=== PATIENT | male | born 1980 | race Caucasian/White ===

== ENCOUNTER 2018-08-12 10:29 | Emergency (ER) ==
[2018-08-12 10:37] VITALS: BP 134/82; TEMP 97.2; BMI 21.7
[2018-08-12] MEDS ORDERED: LACTATED RINGERS 1,000 ML IV STA (10:48)
[2018-08-12] MEDS ORDERED: ZOFRAN 4 MG/2 ML IVP STA ×2 (10:48→12:16)
--- NOTE | 2018-08-12 11:17 | CT ---
EXAM: CT of the head without contrast History: Headache, history of brain cancer, altered mental status. Comparison: None available Technique: Multiplanar CT images through the head were obtained without the administration of IV con trast. Findings: The visualized paranasal sinuses and mastoid air cells are clear in general. Postsurgical changes of the left frontal calvarium. Intracranially there is a large area of edema within the left frontal lobe crossing the midline and t o the right frontal lobe and extending to involve the left temporal lobe and left basal ganglia. The re is 0.6 cm rightward midline shift and subfalcine herniation. There is mild hydrocephalus. There is a surgical cavity seen within the left frontal lobe. 0.4 cm hyperdense focus within the anterior left frontal lobe. Impression: 1. Large area of edema within the left frontal lobe crossing the midline into the right frontal lobe and also extending to involve the left temporal lobe and left basal ganglial region concerning for un derlying malignant brain tumor recurrence. Underlying developing brain infarction should also be cons idered. 2. 0.6 cm rightward midline shift and mild hydrocephalus. 3. 0.4 cm hyperdense focus within the anterior left upper lobe could represent a small focus of hemo rrhage versus hemorrhagic metastatic lesion. Critical results communicated to Dr. Hamlin at 11:04 a.m. 08/12/2018
[2018-08-12] MEDS ORDERED: DECADRON 4 MG/ML SDV IVP STA (11:52)
--- NOTE | 2018-08-12 11:52 | ED.PDOC ---
General ED Provider: Dr. OKSANA CHIANG Chief Complaint: Altered Mental Status Stated Complaint: Patient has a history of Neuroblastoma Multiformi for the past 3 years. Has had two brain surgery and chemotherapy. Recently he was noted to have worsening on the MRI done on the 03 August. Today he had 3 vomiting episodes with severe headache and had some difficulty walking. He also has some gabbled speech but now back to baseline. Accompanied by . Time Seen by Physician: 11:55 Mode of Arrival: Walk-In Information Source: Family Exam Limitations: No limitations Nursing and Triage Documentation Reviewed and Agree: Yes Does patient meet sepsis criteria?: No System Inflammatory Response Syndrome: Not Applicable Sepsis Protocol: For patient's 13 years and over: Temp is 96.8 and below OR 101 and greater Pulse >90 BPM Resp >20/minute Acutely Altered Mental Status Are patient's symptoms suggestive of a new infection, such as: -Pneumonia -Skin, Soft Tissue -Endocarditis -UTI -Bone, Joint Infection -Implantable Device -Acute Abdominal Infection -Wound Infection -Meningitis -Blood Stream Catheter Infection -Unknown Review of Systems - Review Of Systems Constitutional: Reports: No symptoms Eyes: Reports: No symptoms Ears, Nose, Mouth, Throat: Reports: No symptoms Respiratory: Reports: No symptoms Cardiac: Reports: No symptoms GI: Reports: No symptoms : Reports: No symptoms Musculoskeletal: Reports: No symptoms Skin: Reports: No symptoms Neurological: Reports: Anxiety, Headache Endocrine: Reports: No symptoms Hematologic/Lymphatic: Reports: No symptoms All Other Systems: Reviewed and Negative Past Medical History - Past Medical History Previously Healthy: Yes Endocrine: Reports: None Cardiovascular: Reports: None Respiratory: Reports: None Hematological: Reports: None Gastrointestinal: Reports: None Genitourinary: Reports: None Neuro/Psych: Reports: None Musculoskeletal: Reports: None Cancer: Reports: Other (Brain ) - Surgical History General Surgical History: Reports: Other (cervical fusion, Craniotomy x 2 ) - Family History Family History: Reports: None - Social History Smoking Status: Never smoker Hx Substance Use: No Alcohol Screening: Occasionally Physical Exam - Physical Exam Appearance: Ill-appearing, Thin Ill-appearing: Moderate Pain Distress: Moderate Eyes: KERRY, EOMI, Conjunctiva clear ENT: Nose normal, Oropharynx normal Neck: Supple Respiratory: Airway patent, Breath sounds clear, Breath sounds equal, Respirations nonlabored Cardiovascular: RRR, Pulses normal, No rub, No murmur GI/: Soft, Nontender, No masses, Bowel sounds normal, No Organomegaly Musculoskeletal: Normal strength, ROM intact, No edema, No calf tenderness Skin: Warm, Dry, Normal color Neurological: Sensation intact, Motor intact, Reflexes intact, Cranial nerves intact, Alert, Oriented Psychiatric: Affect appropriate, Mood appropriate - NIH Stroke Scale 1a. Level of Consciousness: 0=Alert and keenly responsive 1b. Level of Consciousness Questions: 0=Answers correctly to two questions 1c. Level of Consciousness Commands: 0=Performs two tasks correctly 2. Best Gaze: 0=Normal 3. Visual: 0=No visual loss 4. Facial Palsy: 0=Normal 5a. Motor Left Arm: 0=No drift,arm holds 90 degrees for 10 sec., leg 30 degrees for 5 sec. 5b. Motor Right Arm: 0=No drift,arm holds 90 degrees for 10 sec., leg 30 degrees for 5 sec. 6a. Motor Left Le=No drift,arm holds 90 degrees for 10 sec., leg 30 degrees for 5 sec. 6b. Motor Right Le=No drift,arm holds 90 degrees for 10 sec., leg 30 degrees for 5 sec. 7. Limb Ataxia: 0=Absent 8. Sensory: 0=Normal 9. Best Language: 0=No aphasia 10. Dysarthria: 0=Normal 11. Extincion and Inattention: 0=Normal Stroke Scale Total: 0 Interpretation - Radiology Interpretation Radiology Interpretation By: Radiologist Radiology Results: Positive (see report- brain tumor with edema probably worse) Exam Interpreted: CT Scan Physician Notification - Case Discussed Physician Notified: Dr. Bullock Time of Notification: 11:54 (Give Keppra 1 gm, and Dexamethasone 10mg IV x1. WIll discusse with Dr lenz where he should be reffered. Dr Bullock called to state that Dr Adhikari would like him to go to the nearest [facility]) Physician Notified: Dr RICKS Time of Notification: 13:27 (Accepted by to [facility] to go through the ER. Neurosurgeon is DR Sadler) Critical Care Note - Critical Care Note Total Time (mins): 55 Course - Course Hematology/Chemistry: 08/12/18 11:05 08/12/18 11:05 Orders, Labs, Meds: Lab Review 08/12/18 08/12/18 11:05 11:05 WBC 10.76 H RBC 4.87 Hgb 14.8 Hct 43.2 MCV 88.7 MCH 30.4 MCHC 34.3 RDW Coeff of Giancarlo 12.5 Plt Count 156 Immature Gran % (Auto) 0.8 Neut % (Auto) 84.5 Lymph % (Auto) 7.6 L Clayton % (Auto) 6.7 Eos % (Auto) 0.1 Baso % (Auto) 0.3 Immature Gran # (Auto) 0.1 Neut # (Auto) 9.1 H Lymph # (Auto) 0.8 Clayton # (Auto) 0.7 Eos # (Auto) 0.0 Baso # (Auto) 0.0 Sodium 137.9 Potassium 3.66 Chloride 102.4 Carbon Dioxide 32.8 H Anion Gap 6.36 BUN 26.5 H Creatinine 0.90 Estimated GFR (MDRD) 93.00 BUN/Creatinine Ratio 29.44 Glucose 132.5 H Calcium 9.26 Total Bilirubin 0.86 AST 23.3 ALT 17.2 Alkaline Phosphatase 54.2 Total Protein 7.05 Albumin 4.13 Globulin 2.92 Albumin/Globulin Ratio 1.41 Orders Category Date Time Status ED IV/MEDIPORT/POWERPORT .ONCE EMERGENCY 08/12/18 10:48 Active CBC W/ AUTO DIFF Stat LAB 08/12/18 11:05 Completed COMPREHENSIVE METABOLIC PANEL Stat LAB 08/12/18 11:05 Completed 0.9 % Sodium Chloride [Saline Flush] MEDS 08/12/18 10:48 Discontinued 1 syr IVF PRN PRN Dexamethasone 4 mg/ml Inj [Decadron 4 mg/ml Sdv] MEDS 08/12/18 11:52 Discontinued 10 mg IVP ONCE STA Levetiracetam Inj [Keppra] 1,000 mg MEDS 08/12/18 11:53 Discontinued 0.9 % Sodium Chloride [Sodium Chloride] 100 ml IV ONCE Ondansetron HCl/Pf [Zofran 4 mg/2 ml] MEDS 08/12/18 10:48 Discontinued 4 mg IVP ONCE STA Ondansetron HCl/Pf [Zofran 4 mg/2 ml] MEDS 08/12/18 12:16 Discontinued 4 mg IVP ONCE STA Ringers Lactated Solution [Lactated Ringers] 1,000 ml MEDS 08/12/18 10:[address] HEAD W/O CONTRAST Stat RADS 08/12/18 10:47 Completed Medications Discontinued Medications Generic Name Dose Route Start Last Admin Trade Name Peter PRN Reason Stop Dose Admin Dexamethasone Sodium Phosphate 10 mg 08/12/18 11:52 08/12/18 12:13 Decadron 4 Mg/Ml Sdv IVP 08/12/18 11:53 10 mg ONCE STA Administration Lactated Ringer's 1,000 mls @ 1,000 mls/hr 08/12/18 10:48 08/12/18 11:15 Lactated Ringers IV 08/12/18 11:47 1,000 mls/hr BOLUS STA Administration Levetiracetam 1,000 mg/ Sodium 110 mls @ 100 mls/hr 08/12/18 11:53 08/12/18 12:22 Chloride IV 08/12/18 12:58 100 mls/hr ONCE STA Administration Ondansetron HCl 4 mg 08/12/18 10:48 08/12/18 11:17 Zofran 4 Mg/2 Ml IVP 08/12/18 10:49 4 mg ONCE STA Administration Ondansetron HCl 4 mg 08/12/18 12:16 08/12/18 12:21 Zofran 4 Mg/2 Ml IVP 08/12/18 12:17 4 mg ONCE STA Administration Sodium Chloride 1 syr 08/12/18 10:48 08/12/18 12:19 Saline Flush IVF 1 syr PRN PRN Administration To flush IV Vital Signs: Temp Pulse Resp BP Pulse Ox 08/12/18 10:32 97.2 F L 63 16 134/82 97 Departure - Departure Time of Disposition: 13:28 Disposition: TSF SHORT-TRM HOSP Discharge Problem: Brain tumor, Midline shift of brain Condition: Fair Pt referred to PMD for follow-up: No IPMP verified?: No Allergies/Adverse Reactions: Allergies No Known Allergies Allergy (Unverified 08/12/18 10:38) Home Medications: Ambulatory Orders Acetaminophen [Tylenol] 32,650 mg PO PRN PRN 08/12/18 Dexamethasone 1 mg PO DIRECTED 08/12/18 Hydrocodone Bit/Acetaminophen [Lortab 5-500] 1 tab PO PRN PRN 08/12/18 Lorazepam 0.5 mg PO PRN PRN 08/12/18 Disposition Discussed With: Patient, Family
[2018-08-12] MEDS ORDERED: KEPPRA 1,000 MG in SODIUM CHLORIDE 100 ML IV STA (11:53)
== END 2018-08-12 13:50 | disposition short-term general hospital (02) ==
LOC: ED 10:29
DX: C71.9 Malignant neoplasm of brain, unspecified (principal); G93.5 Compression of brain; R41.82 Altered mental status, unspecified; R51 Headache; R11.10 Vomiting, unspecified; R26.2 Difficulty in walking, not elsewhere classified
CPT/HCPCS: 36415; 80053; 85025; 96361; 96365; 96375; 96376; 99285